=== PATIENT | male | born 1985 | race Caucasian/White ===

== ENCOUNTER 2017-02-21 14:57 | Emergency (ER) | payer SELFPAY ==
[~2017-02-21] VITALS: Ht 180.3 cm; Wt 77.1 kg
[2017-02-21 15:19] VITALS: BP 104/63
--- NOTE | 2017-02-21 15:37 | NUR ---
ARIC NAQVI AT BEDSIDE FOR EVAL.
[2017-02-21] MEDS ORDERED: LORAZEPAM 1 MG TABLET ONE (15:44)
[2017-02-21] MEDS: LORAZEPAM 1 MG TABLET PO ONE (15:50)
== END 2017-02-21 16:01 | disposition home or self-care (01) ==
LOC: ER 14:59
DX: F41.9 Anxiety disorder, unspecified (principal); F12.90 Cannabis use, unspecified, uncomplicated
CPT/HCPCS: A4606; Z7610